=== PATIENT | male | born 1960 | race Asian ===

== ENCOUNTER 2016-11-02 07:00 | Emergency (ER) | payer OTHER ==
[2016-11-02 09:13] VITALS: BP 115/81
== END 2016-11-02 09:50 | disposition home or self-care (01) ==
LOC: ED 07:00
DX: S40.012A Contusion of left shoulder, initial encounter (principal); S50.02XA Contusion of left elbow, initial encounter; W17.89XA Other fall from one level to another, initial encounter; Y93.89 Activity, other specified; Y99.8 Other external cause status; Y92.89 Other specified places as the place of occurrence of the external cause
CPT/HCPCS: J1885

== ENCOUNTER 2017-09-18 18:14 | Inpatient (IN) | payer OTHER ==
[~2017-09-18] VITALS: Ht 172.7 cm; Wt 93.7 kg
[2017-09-18 19:05] LABS: RED CELL DISTRIBUTION WIDTH 13.9 % (11.5-14.5)
[2017-09-18 19:11] LABS: ALBUMIN 3.8 g/dL (3.4-5.0); ALKALINE PHOSPHATASE 72 U/L (46-116); ALT/SGPT 29 U/L (16-63); AST/SGOT 28 U/L (15-37); BILIRUBIN TOTAL 0.5 mg/dL (0.20-1.00); CARBON DIOXIDE 26.4 mmol/L (21-32); CHLORIDE SERUM 104 mmol/L (98-107); GFR1 > 60 mL/min; GLUCOSE SERUM 109 mg/dL (74-106); LIPASE 174 IU/L (73-393); POTASSIUM SERUM 3.6 mmol/L (3.5-5.1); SODIUM SERUM 138 mmol/L (136-145); TOTAL PROTEIN, SERUM 7.4 g/dL (6.4-8.2)
[2017-09-18 19:12] LABS: PLATELET COUNT 79 x10^3mcL (130-400)
[2017-09-18 19:15] LABS: CALCIUM 8.9 mg/dL (8.5-10.1)
[2017-09-18 20:15] LABS: MONOCYTE 5 % (0-7); SEGMENTED NEUTROPHILS 40 % (37-75)
[2017-09-18 20:18] LABS: BAND NEUTROPHIL 2 % (0-10); BASOPHIL 0 % (0-2); PLATELET MORPHOLOGY PLATELETS DECREASED; rbc morphology (normal/abnorm) NORMAL (NORMAL)
[2017-09-18 21:03] VITALS: BP 121/78
[2017-09-18 22:00] LABS: MAGNESIUM 1.8 mg/dL (1.8-2.4); PHOSPHOROUS 2.9 mg/dL (2.5-4.9); T3 TOTAL 1.07 ng/mL
[2017-09-18 22:02] LABS: CHOLESTEROL/HDL RATIO 4.7
[2017-09-18 22:11] LABS: FREE T4 0.92 ng/dL (0.76-1.46); FREE THYROXINE INDEX 2.3 ug/dL (1.4-4.5); T4(THYROXINE) 6.9 ug/dL (4.7-13.3)
[2017-09-19 04:56] VITALS: BP 102/60
[2017-09-19 07:12] LABS: CALCIUM 9.3 mg/dL (8.5-10.1); CARBON DIOXIDE 26.1 mmol/L (21-32); CHLORIDE SERUM 106 mmol/L (98-107); CREATININE SERUM 0.9 mg/dL (0.7-1.3); GFR1 > 60 mL/min; GLUCOSE SERUM 85 mg/dL (74-106); PHOSPHOROUS 4.1 mg/dL (2.5-4.9); POTASSIUM SERUM 4.1 mmol/L (3.5-5.1); SODIUM SERUM 139 mmol/L (136-145)
[2017-09-19 07:17] LABS: BASOPHIL % 0.3 % (0-2); RED CELL DISTRIBUTION WIDTH 13.8 % (11.5-14.5)
[2017-09-19 07:38] LABS: PLATELET COUNT 76 x10^3mcL (130-400)
[2017-09-19 09:18] VITALS: BP 108/69
[2017-09-19 09:21] LABS: microscopic required? NO
[2017-09-19 09:30] LABS: urine erythrocyte NEGATIVE (NEGATIVE)
[2017-09-19 09:50] LABS: AMPHETAMINE QUAL UR NONE DETECTED (NEG <=1000)
[2017-09-19 12:28] VITALS: BP 101/68
[2017-09-19 13:45] VITALS: BP 101/68
== END 2017-09-19 14:25 | disposition home or self-care (01) | DRG 203 ==
LOC: ED 18:14 → DU 19:47
PROVIDERS: Emergency Medicine; Student in an Organized Health Care Education/Training Program
DX: M94.0 Chondrocostal junction syndrome [Tietze] (principal); N17.0 Acute kidney failure with tubular necrosis; Z53.29 Procedure and treatment not carried out because of patient's decision for other reasons; N48.5 Ulcer of penis; E72.20 Disorder of urea cycle metabolism, unspecified; E78.5 Hyperlipidemia, unspecified; K74.60 Unspecified cirrhosis of liver; Z87.891 Personal history of nicotine dependence; Z83.3 Family history of diabetes mellitus; Z56.0 Unemployment, unspecified
CPT/HCPCS: 83880; 84439; J7030

== ENCOUNTER 2018-03-21 13:49 | Emergency (ER) | payer OTHER ==
[~2018-03-21] VITALS: Ht 172.7 cm; Wt 86.6 kg
[2018-03-21 14:06] VITALS: Ht 172.7 cm; Wt 86.6 kg
[2018-03-21 14:36] LABS: microscopic required? NO
[2018-03-21 14:48] LABS: BASOPHIL % 0.7 % (0-2); RED CELL DISTRIBUTION WIDTH 13.1 % (11.5-14.5)
[2018-03-21 14:53] LABS: CALCIUM 9.6 mg/dL (8.5-10.1); CHLORIDE SERUM 104 mmol/L (98-107); CREATININE SERUM 0.9 mg/dL (0.7-1.3); GFR1 > 60 mL/min; GLUCOSE SERUM 75 mg/dL (74-106); POTASSIUM SERUM 4.8 mmol/L (3.5-5.1); SODIUM SERUM 137 mmol/L (136-145)
[2018-03-21 14:54] LABS: UA SPECIFIC GRAVITY >=1.030 (1.005-1.035); urine erythrocyte NEGATIVE (NEGATIVE)
[2018-03-21 14:55] LABS: PLATELET COUNT 79 x10^3mcL (130-400)
[2018-03-21 16:20] VITALS: BP 110/72
== END 2018-03-21 16:20 | disposition home or self-care (01) ==
LOC: ED 13:49
PROVIDERS: Emergency Medicine
DX: R10.32 Left lower quadrant pain (principal); M54.9 Dorsalgia, unspecified; R11.0 Nausea; K74.60 Unspecified cirrhosis of liver
CPT/HCPCS: 36415

== ENCOUNTER 2019-09-05 12:51 | Emergency (ER) | payer OTHER ==
[~2019-09-05] VITALS: Ht 175.3 cm; Wt 90.7 kg
[2019-09-05 13:01] VITALS: Ht 175.3 cm; Wt 90.7 kg
[2019-09-05 15:08] LABS: BASOPHIL % 0.4 % (0-2); RED CELL DISTRIBUTION WIDTH 13.9 % (11.5-14.5)
[2019-09-05 15:09] LABS: PLATELET COUNT 75 x10^3mcL (130-400)
[2019-09-05 15:35] LABS: CALCIUM 9.2 mg/dL (8.5-10.1); CARBON DIOXIDE 28.7 mmol/L (21-32); CHLORIDE SERUM 106 mmol/L (98-107); CREATININE SERUM 1.1 mg/dL (0.7-1.3); GFR1 > 60 mL/min; GLUCOSE SERUM 82 mg/dL (74-106); POTASSIUM SERUM 4.2 mmol/L (3.5-5.1); SODIUM SERUM 141 mmol/L (136-145)
[2019-09-05 15:39] LABS: ALKALINE PHOSPHATASE 69 U/L (46-116); ALT/SGPT 34 U/L (16-63); AST/SGOT 27 U/L (15-37); BILIRUBIN TOTAL 0.6 mg/dL (0.20-1.00); TOTAL PROTEIN, SERUM 8.1 g/dL (6.4-8.2)
[2019-09-05 16:33] VITALS: BP 113/88
== END 2019-09-05 16:34 | disposition home or self-care (01) ==
LOC: ED 12:51
PROVIDERS: Emergency Medicine
DX: B34.9 Viral infection, unspecified (principal); D70.9 Neutropenia, unspecified; D69.6 Thrombocytopenia, unspecified
CPT/HCPCS: 36415; 83880; 87804; Q0092; U0002

== ENCOUNTER 2020-06-06 12:53 | Emergency (ER) | payer OTHER ==
[~2020-06-06] VITALS: Ht 175.3 cm; Wt 95.3 kg
[2020-06-06 13:13] VITALS: BP 137/87; Ht 175.3 cm; Wt 95.3 kg
[2020-06-06 16:06] LABS: BASOPHIL % 0.3 % (0.2-1.5); RED CELL DISTRIBUTION WIDTH 13.4 % (12.1-16.2)
[2020-06-06 16:11] LABS: PLATELET COUNT 63 x10^3mcL (152-348)
[2020-06-06 16:13] LABS: rbc morphology (normal/abnorm) NORMAL (NORMAL)
[2020-06-06 16:15] LABS: CARBON DIOXIDE 27.4 mmol/L (21-32); CHLORIDE SERUM 99 mmol/L (98-107); CREATININE SERUM 1.2 mg/dL (0.7-1.3); GFR1 > 60 mL/min; GLUCOSE SERUM 85 mg/dL (74-106); POTASSIUM SERUM 3.6 mmol/L (3.5-5.1); SODIUM SERUM 135 mmol/L (136-145)
[2020-06-06 16:20] LABS: ALBUMIN 3.9 g/dL (3.4-5.0); ALKALINE PHOSPHATASE 59 U/L (46-116); ALT/SGPT 39 U/L (16-63); AMYLASE 99 U/L (25-115); AST/SGOT 55 U/L (15-37); BILIRUBIN TOTAL 1.4 mg/dL (0.20-1.00); LIPASE 145 IU/L (73-393)
[2020-06-06 16:22] LABS: TOTAL PROTEIN, SERUM 8.4 g/dL (6.4-8.2)
[2020-06-06] MEDS ORDERED: ANUSOL-HC25 MG/SUPP RC (17:39)
== END 2020-06-06 17:43 | disposition home or self-care (01) ==
LOC: ED 12:53
PROVIDERS: Emergency Medicine
DX: K52.89 Other specified noninfective gastroenteritis and colitis (principal)